=== PATIENT | male | born 1960 | race Caucasian/White ===

== ENCOUNTER 2018-01-08 17:39 | Emergency (ER) | payer OTHER ==
[~2018-01-08] VITALS: Ht 160 cm; Wt 96.7 kg
[2018-01-08 18:27] VITALS: Ht 160 cm; Wt 96.7 kg
[2018-01-08 19:58] VITALS: BP 139/89
== END 2018-01-08 19:58 | disposition home or self-care (01) ==
LOC: ED 17:39
DX: R33.9 Retention of urine, unspecified (principal)